=== PATIENT | female | born 1940 | race Caucasian/White ===

== ENCOUNTER 2019-08-26 07:33 | Outpatient (CLI) | payer MEDICARE ==
--- NOTE | 2019-08-26 10:15 | RAD ---
FOUR VIEWS LUMBAR SPINE: HISTORY: Lumbar spondylolisthesis. Six months of low back pain. FINDINGS: AP, lateral weightbearing neutral, lateral weightbearing flexion, and lateral weightbearing extension views demonstrate 5 lumbar-type vertebrae. Lumbar spine vertebral body height is maintained. No fr acture. SPONDYLOLISTHESIS: L4-L5: Neutral 4.7 mm of anterolisthesis; flexion 4.5 mm of anterolisthesis; extension 4.7 mm of ant erolisthesis. IMPRESSION: Grade I anterolisthesis of L4 upon L5 without significant change upon extension or flexion. POS: ZAAN
== END 2019-08-26 07:34 | disposition home or self-care (01) ==
LOC: BICRAD 07:33
PROVIDERS: ATTEND Specialist
DX: M43.16 Spondylolisthesis, lumbar region (principal)
CPT/HCPCS: 72120

== ENCOUNTER 2019-12-09 08:14 | Inpatient (IN) | payer MEDICARE, OTHER ==
[2019-12-08 10:12] VITALS: BMI 25.7
[2019-12-09] MEDS ORDERED: Thrombin 5000 UNITS/5 ML VIAL ONE (09:43)
[2019-12-09] MEDS ORDERED: Levofloxacin 500 mg/D5W 100 ml Premix Bag ONE (09:48)
[2019-12-09] MEDS ORDERED: Clindamycin/D5W 900 mg/50 ml Premix Bag ONE (09:48)
[2019-12-09] MEDS ORDERED: Fentanyl 100 MCG/2 ML VIAL ONE ×3 (10:15→12:51)
[2019-12-09] MEDS ORDERED: Rocuronium Bromide 10 MG/ML (10ML VIAL) ONE (11:11)
[2019-12-09] MEDS ORDERED: Dexamethasone 20 MG/5 ML VIAL ONE (11:11)
[2019-12-09] MEDS ORDERED: Glycopyrrolate 0.2 MG/ML 5 ML SYRINGE ONE (11:11)
[2019-12-09] MEDS ORDERED: PROPOFOL 200 MG/20 ML VIAL ONE (11:11)
[2019-12-09] MEDS ORDERED: Ondansetron PF 4 MG/2 ML Vial ONE (11:11)
[2019-12-09] MEDS ORDERED: traMADol HCl 50 MG TAB PO PRN (11:41)
[2019-12-09] MEDS ORDERED: Milk Of Magnesia 30 ML UDCUP PO PRN (11:41)
[2019-12-09] MEDS ORDERED: Morphine 2 MG/ML SYRINGE SLOW IVP PRN (11:41)
[2019-12-09] MEDS ORDERED: Fleet Enema 133 ML BOT PR PRN (11:41)
[2019-12-09] MEDS ORDERED: Ondansetron PF 4 MG/2 ML Vial IVP PRN (11:41)
[2019-12-09] MEDS ORDERED: Mag-Al 1200 mg/1200 mg/30 ML UDCUP PO PRN (11:41)
[2019-12-09] MEDS ORDERED: tiZANidine HCl 4 MG TAB PO PRN (11:41)
[2019-12-09] MEDS ORDERED: Bisacodyl 10 MG SUPP PR PRN (11:41)
[2019-12-09] MEDS ORDERED: HYDROcodone/Acetaminophen 7.5/325 mg Tablet PO PRN (11:41)
[2019-12-09] MEDS ORDERED: Promethazine HCl 25 MG/ML VIAL ONE (12:10)
[2019-12-09] MEDS ORDERED: Promethazine HCl 25 MG/ML VIAL IM PRN (12:16)
[2019-12-09] MEDS ORDERED: Promethazine HCl 25 MG/ML VIAL SLOW IVP PRN (12:16)
[2019-12-09] MEDS ORDERED: Ondansetron HCl/PF 4 MG/2 ML Vial IVP PRN (12:16)
[2019-12-09] MEDS ORDERED: tiZANidine HCl 4 MG TAB ONE (12:29)
[2019-12-09] MEDS: Sodium Chloride 0.9% 1,000 ML IV SCH ×2 (14:24→23:17)
--- NOTE | 2019-12-09 15:16 | OP ---
DATE OF PROCEDURE: 12/09/2019 PRIVATE DUTY AIDE: Pedro Arechiga PA-C PREPROCEDURE DIAGNOSIS: Lumbar synovial cyst with low back and leg pain. POSTPROCEDURE DIAGNOSIS: Lumbar synovial cyst with low back and leg pain. PROCEDURE PERFORMED: L4-L5 laminectomy for right L4-L5 synovial cyst resection. DESCRIPTION OF PROCEDURE: After informed consent was obtained from the patient, the patient was brought to the OR. Proper patient, pause, and identification were carried out. She was positioned prone. Following general anesthesia induction and security and all appropriate points were padded, we identified the midline lumbar juan to allow for approach to the L4-L5 segment. This region was sterilely cleansed, prepared, and draped. Proper patient, pause, and identification were carried out. The wound was then opened with a combination of sharp, monopolar, and blunt dissection. The L4 and L5 dorsal spine and laminae were exposed. Localization film confirmed our area of interest and performed L4-L5 laminectomy, partial facetectomy, and foraminotomy with removal of the right L4-L5 synovial cyst occurred. We assured bilateral L4 and bilateral L5 nerve root decompression. Copious irrigation occurred throughout as did maximizing hemostasis. The wound was then closed in anatomic layers following sprinkling of vancomycin powder. The patient emerged from anesthesia. Job ID: [id number]
[2019-12-09] MEDS: Gabapentin 300 MG CAP PO SCH ×2 (15:39→21:05)
[2019-12-09] MEDS: Clindamycin/D5W 900 MG in Premix Bag 1 BAG IVPB SCH (17:31)
[2019-12-09] MEDS: Acetaminophen 325 MG TAB PO PRN ×2 (18:27→23:16)
[2019-12-09] MEDS: Nitrofurantoin Monohyd/M-Cryst 100 MG CAP PO SCH (21:05)
[2019-12-10] MEDS: Clindamycin/D5W 900 MG in Premix Bag 1 BAG IVPB SCH (01:14)
--- NOTE | 2019-12-10 08:51 | PRG ---
DATE OF SERVICE: 12/10/2019 SUBJECTIVE: The patient is postoperative day #1 status post L4-L5 synovial cyst resection on the right and L4-L5 laminectomy. Following the surgery, the patient was transitioned to the Med/Surg floor, where she has been monitored closely. She initially had some issues with hypotension, but her narcotics and blood pressure medications were held, and this has significantly improved. She reports her pain is quite minimal, and she has been able to get up and walk in the department without any difficulty. She denies any bowel or bladder issues. OBJECTIVE: On exam this morning, the patient is awake, alert, in no acute distress. She has free active range of motion of all extremities. No focal motor weakness. Her incision remains clean, dry, and intact. PLAN: We will plan to dismiss the patient to home with family. The patient is amenable to this plan. She will monitor her blood pressure closely, and I also advised her to hold her blood pressure medications for systolic less than 120 and only use [id number] Tylenol unless her blood pressure is tolerating the Vantage. The patient understands and is amenable to this plan. We will go ahead and dismiss to home sometime later today. Job ID: [id number] MTDD
[2019-12-10] MEDS ORDERED: Amlodipine 10 MG TAB PO SCH (09:00)
[2019-12-10] MEDS: Acetaminophen 325 MG TAB PO PRN (09:07)
[2019-12-10] MEDS: Gabapentin 300 MG CAP PO SCH (09:08)
[2019-12-10] MEDS: Nitrofurantoin Monohyd/M-Cryst 100 MG CAP PO SCH (09:08)
[2019-12-10 11:04] VITALS: BP 131/67; TEMP 98.6
[2019-12-10] MEDS: Sodium Chloride 0.9% 1,000 ML IV SCH (13:01)
== END 2019-12-10 14:13 | disposition home or self-care (01) | DRG 517 ==
LOC: SURG A 08:14
PROVIDERS: ADMIT Surgery; ATTEND Surgery
PROC: 01NB0ZZ Release Lumbar Nerve, Open Approach (ICD-10-PCS; principal; 2019-12-09)
DX: M71.38 Other bursal cyst, other site (principal); M54.16 Radiculopathy, lumbar region; I10 Essential (primary) hypertension; J30.2 Other seasonal allergic rhinitis; G89.29 Other chronic pain; M85.80 Other specified disorders of bone density and structure, unspecified site; Z88.0 Allergy status to penicillin; Z88.2 Allergy status to sulfonamides; Z88.5 Allergy status to narcotic agent; Z90.710 Acquired absence of both cervix and uterus; Z79.899 Other long term (current) drug therapy
CPT/HCPCS: 76000; J1100; J1956; J2405; J2550; J2704; J3010; J3370; J3490